=== PATIENT | female | born 1965 | race Caucasian/White ===

== ENCOUNTER 2025-07-10 13:23 | Emergency (ER) | payer MEDICAID, SELFPAY ==
[2025-07-10 14:14] VITALS: BP 116/75; PULSE 87; RESP 20; TEMP 37.1; O2SAT 97; BMI 24.2
--- NOTE | 2025-07-10 14:34 | XR_ITS ---
Examination: Bilateral hips, AP pelvis, 5 views Technique: AP, lateral views both hips, AP pelvis, 5 views Exam date and time: July 10, 2025, 1440 hrs. Indications: Injury to both hips today, hip pain Findings: No acute hip fracture or hip dislocation Bones of the pelvis intact Impression: No acute hip or pelvic fracture Recommend 1 day follow-up AP pelvis as clinically warranted
--- NOTE | 2025-07-10 14:34 | XR_ITS ---
Examination: CT lumbar spine, without contrast. 2-D sagittal reconstructions. 2-D coronal reconstructions. 3-D reconstructions. Date and time of exam:July 10, 2025, 1520 hrs. Indications: Patient fell 2 weeks ago with injury to lower back, persistent lower back pain CTDI: vol (mGy):20.3. DLP: (mGycm):690. Technique: Multiple 1.25 mm axial sections of the lumbar spine without intravenous contrast have been obtained. 2-D sagittal and coronal reconstructions have been obtained. 3-D reconstructions have been obtained. Low dose protocols were performed. One or more of the following dose reduction techniques were used; automated exposure control, adjustment of the mA and/or KV according to patient size, use of iterative reconstruction technique. Findings: Mild chronic appearing wedging L1 vertebral body, minimal depression superior endplate which appears old Number the levels, laminae, transverse and posterior spinous processes appear intact No spondylolisthesis L5-S1 4 mm central lumbar disc bulge consistent contiguous with the right and left S1 nerve roots L4-L5 no disc protrusion L3-L4 no disc protrusion L2-L3 no disc protrusion L1-L2 no disc protrusion Impression: L5-S1 4 mm central lumbar disc bulge contiguous with the right and left S1 nerve roots
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
[2025-07-10] MEDS: IBUPROFEN TAB 400 MG TABLET 800 MG PO (15:13)
[2025-07-10] MEDS: ONDANSETRON ODT 4 MG TABRAP PO (15:13)
[2025-07-10] MEDS: HYDROcodone/APAP 5/325 TABLET 1 TAB PO (15:14)
[2025-07-10 18:08] VITALS: BP 136/66; PULSE 89; RESP 18; TEMP 36.6; O2SAT 97
== END 2025-07-10 18:09 | disposition home or self-care (01) ==
PROVIDERS: Emergency Provider Emergency Medicine; PCP Family Medicine
DX: S39.92XA Unspecified injury of lower back, initial encounter (principal); M51.372 Other intervertebral disc degeneration, lumbosacral region with discogenic back pain and lower extremity pain; M25.552 Pain in left hip; M25.551 Pain in right hip; W18.2XXA Fall in (into) shower or empty bathtub, initial encounter; Y93.E1 Activity, personal bathing and showering
CPT/HCPCS: 72131; 73522; 99283; Q0162; A9270

== ENCOUNTER 2025-08-08 14:06 | Emergency (ER) | payer MEDICAID, SELFPAY ==
[2025-08-08 14:09] VITALS: BMI 24.1
[2025-08-08 15:05] VITALS: BP 143/82; PULSE 82; RESP 20; TEMP 36.7; O2SAT 100
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
--- NOTE | 2025-08-08 15:43 | XR_ITS ---
Examination: CT lumbar spine, without contrast. 2-D sagittal reconstructions. 2-D coronal reconstructions. 3-D reconstructions. Date and time of exam:August 08, 2025, 1617 hrs. Indications: Right lower back pain beginning 2 weeks ago. CTDI: vol (mGy):22 DLP: (mGycm):745 Technique: Multiple 1.25 mm axial sections of the lumbar spine without intravenous contrast. have been obtained. 2-D sagittal and coronal reconstructions have been obtained. 3-D reconstructions have been obtained. Low dose protocols were performed. One or more of the following dose reduction techniques were used; automated exposure control, adjustment of the mA and/or KV according to patient size, use of iterative reconstruction technique. Findings: Prominent osteopenia. Mild chronic compression L1 vertebral body. No spondylolisthesis. Minimal disc narrowing L3-L4, L4-L5. L5-S1 7 mm central lumbar disc bulge indenting the ventral margin of the thecal sac L4-L5 6 mm central lumbar disc bulge indenting the ventral margin of the thecal sac More cephalad levels unremarkable Impression: No acute lumbar fracture L5-S1 7 mm central lumbar disc bulge displacing the right and left S1 nerve roots L4-L5 6 mm central lumbar disc bulge displacing the right and left L5 nerve roots
--- NOTE | 2025-08-08 15:43 | XR_ITS ---
Examination: CT abdomen and pelvis without contrast. Coronal 3-D reconstructions. Sagittal 2-D reconstructions. Date and time of exam:August 08, 2025, 1615 hrs. Indications: Onset right lower abdominal pain beginning 2 weeks ago CTDI: vol (mGy): 7.7 DLP: (mGycm): 384 Technique: Axial images of the abdomen have been obtained, 3 mm slice thickness Intravenous contrast material has not been administered. Low dose protocols were performed. One or more of the following dose reduction techniques were used; automated exposure control, adjustment of the mA and/or KV according to patient size, use of iterative reconstruction technique. Findings: No focal liver or splenic lesions Gallstones. Gallbladder wall appears mildly thickened. No pancreatic mass. No renal or ureteral calculi, no hydronephrosis Normal appendix. No bowel obstruction No pelvic mass Urinary bladder intact Moderate osteopenia Mild chronic compression L1 Impression: Recommend hepatobiliary sonography follow-up to exclude calculus cholecystitis No renal or ureteral calculi, no hydronephrosis. Normal appendix. No bowel obstruction or diverticulitis.
[2025-08-08 16:11] LABS: Collection Type, Urine Voided
[2025-08-08 16:19] LABS: Basophils # (Auto) 0.0 Thou/mm3 (0.0-0.2); Basophils % (Auto) 0 % (0-2.5); Eosinophils # (Auto) 0.1 Thou/mm3 (0.0-0.5); Eosinophils % (Auto) 1 % (0-10); Hematocrit 35.5 % (36.0-46.0); Hemoglobin 11.9 g/dL (12.0-16.0); Immature Granulocytes Auto 0.03 Thou/mm3 (0.00-0.00); Lymphocytes # (Auto) 2.2 Thou/mm3 (1.0-4.8); Lymphocytes % (Auto) 32 % (10-50); Mean Corpuscular HGB Conc 33.5 g/dl (31.0-37.0); Mean Corpuscular Hemoglobin 29.8 pg (25.0-35.0); Mean Corpuscular Volume 89 fL (80-100); Monocytes # (Auto) 0.5 Thou/mm3 (0.0-0.8); Monocytes % (Auto) 7 % (0-12); Neutrophils # (Auto) 4.2 Thou/mm3 (1.8-7.7); Neutrophils % (Auto) 60 % (37-80); Nucleated Red Blood Cell # 0.00 Thou/mm3 (0.00-0.00); Nucleated Red Blood Cell % 0 /100 WBC (0); Platelet Count 217 Thou/mm3 (140-440); RDW Standard Deviation 41.6 fL (36.4-46.3); Red Blood Count 3.99 Miln/mm3 (4.00-5.20); White Blood Count 7.0 Thou/mm3 (3.6-11.0)
[2025-08-08 16:25] LABS: Bilirubin,Urine Negative (Negative); Blood,Urine Trace (Negative); Clarity,Urine Clear (Clear/Hazy); Color,Urine Yellow (Lt Yel-Yel); Culture Indicated,Urine Not Indicated; Glucose, Urine Negative (Negative); Ketones,Urine Negative (Negative); Leukocyte Esterase,Urine Positive (Negative); Nitrite,Urine Negative (Negative); PH,Urine 6.0 (5.0-7.0); Protein,Urine Negative (Neg - Trace); RBC,Urine 8 /hpf (0-3); Specific Gravity,Urine 1.030 (1.001-1.035); Squamous Epithelial Cell,Urine 2 /hpf (0-5); Urobilinogen,Urine 2.0 mg/dL (0.0-1.0); WBC,Urine 4 /hpf (0-5)
[2025-08-08 16:27] LABS: Glucose Estimated Average 126 mg/dL (80-131); Hemoglobin A1C 6.0 % Hgb (4.8-6.0)
[2025-08-08 16:31] LABS: Alanine Aminotransferase 10 U/L (10-49); Albumin, Serum 4.3 gm/dL (3.4-4.8); Albumin/Globulin Ratio 2.4 (1.2-2.2); Alkaline Phosphatase 91 U/L (46-116); Anion Gap 9 (7-16); Aspartate Amino Transferase 13 U/L (0-34); BUN/Creatinine Ratio 16 Ratio (12-20); Bilirubin,Total 0.4 mg/dL (0.3-1.2); Blood Urea Nitrogen 13 mg/dL (9-23); Calcium 9.3 mg/dL (8.3-10.6); Calcium (Corrected) 9.3 mg/dL (8.5-10.1); Carbon Dioxide 25.8 mMol/L (20.0-31.0); Chloride 108 mMol/L (98-107); Creatinine (Component) 0.8 mg/dL (0.6-1.3); Estimated Creatinine Clearance 71.8 mL/min (>60); Globulin 1.8 gm/dL (2.3-3.5); Glucose 108 mg/dL (74-106); Osmolality,Calculated 286 (275-295); Potassium 3.9 mMol/L (3.4-5.1); Sodium 143 mMol/L (136-145); Total Protein 6.1 gm/dL (5.7-8.2); eGFR > 60 See Note
== END 2025-08-08 19:16 | disposition home or self-care (01) ==
PROVIDERS: Emergency Provider Physician Assistant; PCP Family Medicine
DX: M51.360 Other intervertebral disc degeneration, lumbar region with discogenic back pain only (principal); K59.00 Constipation, unspecified
CPT/HCPCS: 36415; 72131; 74176; 80053; 81001; 83036; 85025; 99284; A9270